=== PATIENT | male | born 1995 | race Caucasian/White ===

== ENCOUNTER 2018-08-06 18:56 | Emergency (ER) | payer SELFPAY ==
[~2018-08-06] VITALS: Ht 160 cm; Wt 70.0 kg
[2018-08-06] MEDS ORDERED: TETANUS, DIPHTHERIA, PERTUSSIS VAC/PF 0.5ML (>7YR OLD) IM ONE (21:30)
[2018-08-06] MEDS ORDERED: LIDOCAINE HCL/PF 1% 10 MG/ML 5ML VIAL IJ ONE (21:30)
[2018-08-06] MEDS ORDERED: BACITRACIN ZINC OINT UDPKT TOP ONE (21:30)
[2018-08-06 23:36] VITALS: BP 118/83
== END 2018-08-06 23:45 | disposition home or self-care (01) ==
LOC: ER 18:56
DX: S61.412A Laceration without foreign body of left hand, initial encounter (principal); W45.8XXA Other foreign body or object entering through skin, initial encounter; Y93.89 Activity, other specified; Y92.89 Other specified places as the place of occurrence of the external cause; Y99.8 Other external cause status
CPT/HCPCS: 12001; 90471; 90715; 99283; J3490; Z7610

== ENCOUNTER 2021-08-18 11:16 | Emergency (ER) | payer MEDICAID ==
[~2021-08-18] VITALS: Ht 165.1 cm; Wt 87.0 kg
[2021-08-18] MEDS ORDERED: ONDANSETRON 4MG ODT PO ONE (14:30)
[2021-08-18] MEDS ORDERED: HYDROCODONE/ACETAMINOPHEN 5/325MG TABLET PO ONE (14:30)
[2021-08-18 14:57] VITALS: BP 130/61
[2021-08-18] MEDS ORDERED: IBUP-2030 MT (16:15)
[2021-08-18] MEDS ORDERED: TRAM50TA MT (16:15)
[2021-08-18] MEDS ORDERED: ACETAMINOPHEN 325MG TABLET PO ONE (17:45)
== END 2021-08-18 18:01 | disposition home or self-care (01) ==
LOC: ER 12:47
DX: S89.82XA Other specified injuries of left lower leg, initial encounter (principal); M25.462 Effusion, left knee; W01.0XXA Fall on same level from slipping, tripping and stumbling without subsequent striking against object, initial encounter; Y93.66 Activity, soccer; Y92.89 Other specified places as the place of occurrence of the external cause
CPT/HCPCS: 73560; 73562; 99284; L1830; Q0162